=== PATIENT | female | born 1965 | race Hispanic/Latino ===

== ENCOUNTER 2016-05-19 18:13 | Emergency (ER) | payer SELFPAY ==
[2016-05-19] MEDS ORDERED: ASPIRIN (CHEWABLE) 81 MG TAB PO ONE (18:25)
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
[2016-05-19 18:45] VITALS: TEMP 97
--- NOTE | 2016-05-19 19:14 | RAD ---
EXAM DESCRIPTION: XR CHEST 1 VIEW CLINICAL HISTORY: chest COMPARISON: None FINDINGS: Cardiac silhouette is within normal limits. EKG leads project over the chest. There is no focal parenchymal or pleural disease. There is no acute osseous process visualized. IMPRESSION: No evidence of acute cardiopulmonary disease. Electronically signed by: Meño Blood 05/19/2016 19:12
[2016-05-19 23:21] VITALS: BP 111/63; O2SAT 98
== END 2016-05-19 23:29 | disposition home or self-care (01) ==
LOC: ER 18:13
DX: R07.9 Chest pain, unspecified (principal); F41.0 Panic disorder [episodic paroxysmal anxiety]; Z82.49 Family history of ischemic heart disease and other diseases of the circulatory system

== ENCOUNTER 2016-10-13 12:22 | Emergency (ER) | payer SELFPAY ==
[2016-10-13] MEDS ORDERED: ASPIRIN (CHEWABLE) 81 MG TAB PO ONE (12:28)
[2016-10-13] MEDS ORDERED: SODIUM CHLORIDE 0.9% 1000ML 1,000 ML IVS PRN (12:29)
[2016-10-13] MEDS ORDERED: KETOROLAC TROMETHAMINE INJ 30 MG/ML VIAL IV ONE (12:30)
[2016-10-13] MEDS ORDERED: ORPHENADRINE CITRATE 30 MG/ML AMP IV ONE (12:30)
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
[2016-10-13 13:09] VITALS: TEMP 98.9
--- NOTE | 2016-10-13 13:20 | RAD ---
EXAM DESCRIPTION: Chest,1 View CLINICAL HISTORY: 50 years,Female,pain COMPARISON: May 19, 1999 17 FINDINGS: Lung gonzales are clear, no consolidation, effusions, or nodules. Heart size and pulmonary vascularity are normal. Bony elements are unremarkable for age. IMPRESSION: Unremarkable chest. Stable Electronically signed by: Jj Newman MD 10/13/2016 1:20 PM CDT
--- NOTE | 2016-10-13 14:31 | CT ---
EXAM DESCRIPTION: Abdomen/Pelvis w/Contrast CLINICAL HISTORY: pain abdominal pain COMPARISON: August 21, 2009 TECHNIQUE: Postcontrast CT images of the abdomen and pelvis are obtained. This exam was performed according to our departmental dose-optimization program, which includes automated exposure control, adjustment of the mA and/or kV according to patient size and/or use of iterative reconstruction technique . FINDINGS: Visualized lung bases no acute findings. Nipple less than 1 cm hepatic cysts are stable. Spleen, pancreas, adrenal glands, and gallbladder are unremarkable. Abdominal vasculature is unremarkable. Simple fluid attenuation parapelvic cysts are seen in both kidneys left greater than right. No ureteral calcification or obstruction is appreciated. Urinary bladder is unremarkable. Uterus and adnexa are unremarkable. The appendix is unremarkable. No small bowel obstruction is seen. Stomach is poorly distended and not well evaluated. There is been interval resolution of the free intraperitoneal air seen on previous exam. No significant diverticular disease is appreciated. Osseous structures show no aggressive bony lesions. Mild curvature of the lumbar spine. IMPRESSION: No acute findings on CT of the abdomen and pelvis. Stable left greater than right renal parapelvic cysts. There is been interval resolution of the free intraperitoneal air seen on previous exam Electronically signed by: Forrest Whatley MD 10/13/2016 2:31 PM CDT
[2016-10-13 16:31] VITALS: BP 111/73; O2SAT 98
== END 2016-10-13 16:15 | disposition home or self-care (01) ==
LOC: ER 12:22
DX: R10.13 Epigastric pain (principal); R07.9 Chest pain, unspecified; Z82.49 Family history of ischemic heart disease and other diseases of the circulatory system
CPT/HCPCS: 36415; 71010; 74177; 80048; 80076; 80307; 81001; 82550; 82553; 83690; 84484; 85025; 85610; 85730; 93005; J1885; J2360; J7030

== ENCOUNTER 2017-03-01 13:08 | Emergency (ER) | payer OTHER ==
[2017-03-01 13:21] VITALS: TEMP 98.8
--- NOTE | 2017-03-01 13:35 | ED.PDOC ---
History of Present Illness - General Chief Complaint: Lower Extremity Injury Stated Complaint: Left ankle discomfort Time Seen by Provider: 03/01/17 13:24 Source: patient, RN notes reviewed, Vital Signs reviewed Exam Limitations: no limitations - History of Present Illness Initial Comments: Patient comes to the ER with c/o of L ankle pain. Reports she was walking around her car and turned towards her daughter and her ankle rolled. She is having pain at her lateral L ankle and up her morales to her knee. No numbness or tingling. Occurred: just prior to arrival Pain - Lower Extremity: moderate: Left Morales, Left Ankle Method of Injury: twisted Improving Factors: rest Worsening Factors: movement Allergies/Adverse Reactions: Allergies NO KNOWN ALLERGY Allergy (Verified 03/01/17 13:21) Home Medications: Ambulatory Orders NK [NK] 03/01/17 Review of Systems - Review of Systems Constitutional: States: no symptoms reported Respiratory: States: no symptoms reported Cardiology: States: no symptoms reported Musculoskeletal: States: see HPI, joint pain, joint swelling Skin: States: no symptoms reported Neurological: States: no symptoms reported. Denies: numbness, paresthesia, tingling All other Systems: No Change from Baseline Past Medical History (General) - Patient Medical History Hx Stroke: No Hx Congestive Heart Failure: No Hx Diabetes: No Surgical History: other - Vaccination History Hx Tetanus, Diphtheria Vaccination: No Hx Influenza Vaccination: No Hx Pneumococcal Vaccination: No - Social History Hx Tobacco Use: No Hx Alcohol Use: No Hx Substance Use: No Hx Substance Use Treatment: No Hx Depression: No Hx Physical Abuse: No Hx Emotional Abuse: No Hx Suspected Abuse: No - Female History Patient is a Female of Child Bearing Age (10 -59 yrs old): No - 2014, menopause Hx Last Menstrual Period: 10/06/14 - perimenopausal Patient : No Family Medical History - Family History Mother Family History: Unknown Living Status: Hx Family Hypertension: Yes - parents Hx Cardiac Disease: Yes - mom Hx Family Diabetes: Yes - parents Hx Family Cancer: Yes - breast-mom Physical Exam - Physical Exam General Appearance: Alert, Comfortable, No apparent distress, Well Developed, Well Groomed, Well Hydrated, Well Nourished Cardiovascular/Respiratory: normal peripheral pulses, no respiratory distress Leg: bone tenderness - along L fibula, pain, soft tissue tenderness Knee: bone tenderness - lateral aspect of knee over proximal fibula Ankle: bone tenderness - Lateral aspect of L ankle, limited ROM - due to pain, soft tissue tenderness, swelling Foot: normal inspection, non-tender, no evidence of injury, normal ROM Neuro/Tendon: normal sensation, normal motor functions, normal tendon functions , responds to pain, no evidence tendon injury Mental Status: alert, oriented x 3 Skin: normal color, warm/dry Comments: Vital Signs 03/01/17 13:16 Temperature 98.8 F Pulse Rate [ 72 Left Radial] Respiratory 18 Rate Blood Pressure 117/68 [Left Arm] O2 Sat by Pulse 97 Oximetry Progress - EKG/XRAY/CT XRAY: L knee: normal per Radiologist - Normal per Radiologist Procedures - Splinting Left Ankle Pre-Made Type: Ankle stir-up splint Splint: Ankle stir-up splint Pre-Proc Neuro Vasc Exam: normal Post-Proc Neuro Vasc Exam: normal Departure - Departure Clinical Impression: Inversion sprain of left ankle Qualifiers: Encounter type: initial encounter Qualified Code(s): S93.402A - Sprain of unspecified ligament of left ankle, initial encounter Time of Disposition: 14:08 Disposition: Discharge to Home or Self Care Condition: Good Departure Forms: ED Discharge - Pt. Copy, Patient Portal Self Enrollment Instructions: DI for Ankle Sprain Diet: resume usual diet Activity: increase activity as tolerated Home Medications: Ambulatory Orders NK [NK] 03/01/17
--- NOTE | 2017-03-01 14:00 | RAD ---
EXAM DESCRIPTION: Knee,Left Complete CLINICAL HISTORY: 51 years Female, Pain after twisting ankle COMPARISON: None. FINDINGS: There is no acute fracture or malalignment. No joint effusion is seen. There is no joint space narrowing, and the soft tissues are unremarkable. IMPRESSION: Negative exam. Electronically signed by: Brennen Obregon MD 03/01/2017 1:59 PM CDT
--- NOTE | 2017-03-01 14:00 | RAD ---
EXAM DESCRIPTION: Ankle,Left 3 Views CLINICAL HISTORY: 51 years Female, Pain after twisting ankle COMPARISON: None. FINDINGS: 3 views of left ankle show no acute fracture or malalignment. The tibiotalar joint space and talar dome are well-maintained. The base of the fifth metatarsal is intact. IMPRESSION: Negative exam. Electronically signed by: Brennen Obregon MD 03/01/2017 1:58 PM CDT
[2017-03-01] MEDS ORDERED: IBUPROFEN 200 MG TAB PO ONE (14:24)
[2017-03-01 15:02] VITALS: BP 124/72; O2SAT 98
== END 2017-03-01 14:25 | disposition home or self-care (01) ==
LOC: ER 13:08
DX: S93.402A Sprain of unspecified ligament of left ankle, initial encounter (principal); X50.1XXA Overexertion from prolonged static or awkward postures, initial encounter; Y92.9 Unspecified place or not applicable

== ENCOUNTER → 2017-09-25 | Outpatient (CLI) | payer SELFPAY ==
--- NOTE | 2017-09-25 16:52 | MAM ---
EXAM DESCRIPTION: Screening Mammogram,Bilateral: Digital Mammography CLINICAL HISTORY: 51 years Female SCREENING . Bilateral breast pain. No personal history of breast cancer. Mother with breast cancer. Childbirth. Postmenopausal. No HRT. COMPARISON: 2-D digital screening bilateral study 11/04/2014.. No prior reports available. TECHNIQUE: Bilateral CC and MLO projection full-field images, 2-D digital screening mammographic technique. CAD was utilized. FINDINGS: The breast parenchymal density pattern is: Heterogeneously dense breast tissue, which may obscure small masses. No skin thickening or nipple retraction right axillary lymph node. Small bilateral microcalcifications. No focal, stellate mass or density, focal asymmetry , and no suspicious microcalcifications bilaterally. Stable mammograms compared to the prior study. IMPRESSION: BI-RADS CATEGORY: 2 - BENIGN FINDINGS. FOLLOW UP: Routine digital bilateral screening, one year interval from September 2017. Written communication explaining the IMPRESSION and follow-up, will be mailed to the patient and referring health care provider. According to the [employer], yearly mammograms are recommended starting at age 40 and continuing as long as a woman is in good health. Any breast change noted on a breast self-exam should be reported promptly to the patient's healthcare provider. Breast MRI is recommended for women with an approximately 20-25% or greater lifetime risk of breast cancer, including women with a strong family history of breast or ovarian cancer and women who have been treated for Hodgkin's disease. A negative mammographic report should not delay tissue diagnosis in patients with significant clinical history or physical findings. Extremely dense breast tissue limits the sensitivity of digital mammography. Electronically signed by: Julio Moore MD 09/25/2017 4:51 PM CDT
== END ==
LOC: YCFC.O 15:16
PROVIDERS: ATTEND Nurse Practitioner Family
DX: Z12.31 Encounter for screening mammogram for malignant neoplasm of breast (principal); N64.4 Mastodynia

== ENCOUNTER 2019-08-25 12:05 | Emergency (ER) | payer SELFPAY ==
[2019-08-25] MEDS ORDERED: ASPIRIN TABLET 325 MG TAB PO ONE (12:07)
[2019-08-25] MEDS ORDERED: MECLIZINE HCL 12.5 MG TAB PO ONE (12:08)
--- NOTE | 2019-08-25 12:46 | RAD ---
EXAM DESCRIPTION: Chest,1 View CLINICAL HISTORY: intermittent chest pain COMPARISON: 13 October 2016 TECHNIQUE: AP portable chest FINDINGS: The lungs are clear. There is no infiltrate or effusion. The heart is normal size. IMPRESSION: Normal portable chest Electronically signed by: Jj Ortiz MD 08/25/2019 12:45 PM CDT
[2019-08-25] MEDS ORDERED: PROMETHAZINE HCL 25 MG TAB PO ONE (12:55)
--- NOTE | 2019-08-25 14:05 | ED.PDOC ---
History of Present Illness - General Chief Complaint: General Stated Complaint: dizziness, double vision, n/v Time Seen by Provider: 08/25/19 12:07 Source: patient Exam Limitations: no limitations - History of Present Illness Initial Comments: The patient is a 53-year-old female presented emergency room secondary to what appears to be 2 very brief episodes of vertigo over the last 12 to 18 hours with associated persistent dizziness and nausea related to that. When the nausea has been at its worst she has had a couple of episodes of substernal chest discomfort. The patient also has some costochondritis that is easily palpated to the right of the sternal border and does produce significant pain. No trauma. No syncope. No focal neurological changes otherwise. During the brief vertigo episodes she did have blurriness of her vision and moving of objects in her visual field. That has resolved. On exam she has no obvious abnormal nystagmus. Head impulse testing exacerbates dizziness symptoms primarily with turning to the left. No abnormal vertical skew deviation. Ear canals are clear. No focal neurological deficits otherwise. The patient is pleasant and cooperative. No difficulty swallowing or talking. Patient ambulates carefully but seems to be controlling her gait well. Timing/Duration: 24 hours Severity: moderate Improving Factors: nothing Worsening Factors: nothing Associated Symptoms: malaise, nausea/vomiting Allergies/Adverse Reactions: Allergies NO KNOWN ALLERGY Allergy (Verified 08/25/19 12:30) Home Medications: Ambulatory Orders Meclizine HCl 25 mg PO Q8HR PRN #10 tab 08/25/19 Ondansetron Odt [Zofran ODT] 4 mg PO Q8HR PRN #5 tab 08/25/19 predniSONE [Prednisone] 20 mg PO DAILY #5 tab 08/25/19 Review of Systems - Review of Systems Constitutional: States: no symptoms reported EENTM: States: no symptoms reported Respiratory: States: no symptoms reported Cardiology: States: no symptoms reported Gastrointestinal/Abdominal: States: nausea Genitourinary: States: no symptoms reported Musculoskeletal: States: no symptoms reported Skin: States: no symptoms reported Neurological: States: see HPI Endocrine: States: no symptoms reported All other Systems: No Change from Baseline Past Medical History (General) - Patient Medical History Hx Stroke: No Hx Congestive Heart Failure: No Hx Diabetes: No - Vaccination History Hx Tetanus, Diphtheria Vaccination: No Hx Influenza Vaccination: No Hx Pneumococcal Vaccination: No - Social History Hx Tobacco Use: No Hx Alcohol Use: No Hx Substance Use: No Hx Substance Use Treatment: No Hx Depression: No Hx Physical Abuse: No Hx Emotional Abuse: No Hx Suspected Abuse: No - Activities of Daily Living Hospice Agency (if applicable):: None - Female History Patient is a Female of Child Bearing Age (10 -59 yrs old): Yes Hx Last Menstrual Period: 10/06/14 - perimenopausal Patient : No - Triage Comment ED Triage Comment: pt voices dizziness, double vision with nausea vomiting and chest pressure. Family Medical History - Family History Mother Family History: Unknown Living Status: Hx Family Hypertension: Yes - parents Hx Cardiac Disease: Yes - mom Hx Family Diabetes: Yes - parents Hx Family Cancer: Yes - breast-mom Physical Exam - Physical Exam General Appearance: Alert, Anxious, No apparent distress Eye Exam: bilateral normal Ears, Nose, Throat: hearing grossly normal, normal pharynx Neck: non-tender, full range of motion, supple Respiratory: lungs clear, normal breath sounds, no respiratory distress, no accessory muscle use Cardiovascular/Chest: normal peripheral pulses, regular rate, rhythm, no edema, other - Tenderness to palpation over the sternocostal junction on the right Peripheral Pulses: radial,right: 2+, radial,left: 2+ Gastrointestinal/Abdominal: non tender, soft Rectal Exam: deferred Back Exam: no CVA tenderness, no vertebral tenderness Extremity: non-tender, normal inspection, no pedal edema, normal capillary refill Neurologic: [employer] II-XII nml as tested, no motor/sensory deficits, alert, oriented x 3, other - The patient is quite anxious. She does have an exacerbation of dizziness but no obvious abnormal nystagmus and no true vertigo with turning towards the left. Skin Exam: normal color Comments: Vital Signs - 24 hr 08/25/19 08/25/19 08/25/19 12:07 12:14 12:58 Temperature 97.1 F L 97.1 F L Pulse Rate [ 60 60 56 L brachial] Respiratory 18 18 Rate Blood Pressure 169/78 140/77 [Left Arm] O2 Sat by Pulse 99 98 Oximetry 08/25/19 08/25/19 13:00 13:02 Temperature 97.1 F L 97.1 F L Pulse Rate [ 62 67 brachial] Respiratory 20 18 Rate Blood Pressure 156/78 156/78 [Left Arm] O2 Sat by Pulse 92 L 99 Oximetry Progress - Progress Progress: 08/25/19 14:08 The patient is a 53-year-old female presented emergency room with what appears to be a few brief episodes of mild vertigo with residual dizziness and nausea related to that. The patient does have mild inflammation to palpation at the sternal costal junction on the right. Tylenol and Motrin can help with this. Source of the vertigo is most likely vestibular neuronitis or labyrinthitis based on the exam, localizing more towards the left . The patient will be placed on low-dose prednisone for 5 days. She will also be written for Zofran for as needed use to control any nausea and meclizine as well for the next few days to help reduce dizziness symptoms. She is to keep her self well- hydrated. I would recommend the patient take an aspirin daily for the next month for anti-inflammatory purposes. ER warnings are given for any significant worsening. I do want her to follow back up with her primary care doctor for repeat evaluation before the weekend. [id number] - Results/Orders Results/Orders: Chest x-ray appears within normal limits. EKG shows mild sinus bradycardia 58 bpm. Normal axis. Borderline R wave progression. No ST segment or T wave changes indicative of acute ischemia. Normal QT interval. Laboratory Tests 08/25/19 08/25/19 08/25/19 12:57 12:57 12:57 WBC 4.7 L RBC 4.98 Hgb 15.1 Hct 44.2 MCV 88.7 MCH 30.3 MCHC 34.2 RDW 13.5 Plt Count 235 MPV 8.4 Absolute Neuts (auto) 2.90 Absolute Lymphs (auto) 1.50 Absolute Monos (auto) 0.20 Absolute Eos (auto) 0.10 Absolute Basos (auto) 0.00 Neutrophils % 61.6 Lymphocytes % 31.9 Monocytes % 3.8 Eosinophils % 2.0 Basophils % 0.7 PT 10.0 INR 1.01 PTT (SP) 24.7 D-Dimer, Quantitative < 131 L Sodium 138 Potassium 3.5 L Chloride 106 Carbon Dioxide 24 Anion Gap 11.5 L BUN 10 Creatinine 0.49 L BUN/Creatinine Ratio 20.4 H Random Glucose 94 Serum Osmolality 274.5 L Calcium 9.0 Magnesium 2.1 Total Bilirubin 0.7 AST 23 ALT 25 Alkaline Phosphatase 74 Creatine Kinase 50 CK-MB (CK-2) 1.7 CK-MB (CK-2) % Not Reportable Troponin I < 0.02 B-Natriuretic Peptide 17.2 Serum Total Protein 6.8 Albumin 4.2 Globulin 2.6 Albumin/Globulin Ratio 1.6 TSH 0.95 Serum HCG, Qual Urine Color Urine Appearance Urine pH Ur Specific Boring Urine Protein Urine Glucose (UA) Urine Ketones Urine Blood Urine Nitrite Urine Bilirubin Urine Urobilinogen Ur Leukocyte Esterase Urine RBC Urine WBC Ur Epithelial Cells Amorphous Sediment Urine Bacteria 08/25/19 08/25/19 12:57 13:15 WBC RBC Hgb Hct MCV MCH MCHC RDW Plt Count MPV Absolute Neuts (auto) Absolute Lymphs (auto) Absolute Monos (auto) Absolute Eos (auto) Absolute Basos (auto) Neutrophils % Lymphocytes % Monocytes % Eosinophils % Basophils % PT INR PTT (SP) D-Dimer, Quantitative Sodium Potassium Chloride Carbon Dioxide Anion Gap BUN Creatinine BUN/Creatinine Ratio Random Glucose Serum Osmolality Calcium Magnesium Total Bilirubin AST ALT Alkaline Phosphatase Creatine Kinase CK-MB (CK-2) CK-MB (CK-2) % Troponin I B-Natriuretic Peptide Serum Total Protein Albumin Globulin Albumin/Globulin Ratio TSH Serum HCG, Qual Negative Urine Color Yellow Urine Appearance Clear Urine pH 7.0 Ur Specific Boring 1.025 Urine Protein Negative Urine Glucose (UA) Negative Urine Ketones Negative Urine Blood Negative Urine Nitrite Negative Urine Bilirubin Negative Urine Urobilinogen 0.2 Ur Leukocyte Esterase Negative Urine RBC 0-1 Urine WBC 0-1 Ur Epithelial Cells 3-5 Amorphous Sediment 1+ Urine Bacteria 0 Departure - Departure Clinical Impression: Vertigo, Costochondritis, acute Disposition: Discharge to Home or Self Care Condition: Fair Departure Forms: ED Discharge - Pt. Copy, Patient Portal Self Enrollment Diet: bland diet Activity: increase activity as tolerated - Avoid high risk activities such as climbing or swimming until dizziness has significantly improved Referrals: Toyin Kyle FNP [Primary Care Provider] - 1-2 Weeks Prescriptions: Meclizine HCl 25 mg PO Q8HR PRN #10 tab PRN Reason: Dizziness Ondansetron Odt [Zofran ODT] 4 mg PO Q8HR PRN #5 tab PRN Reason: Nausea--Moderate predniSONE [Prednisone] 20 mg PO DAILY #5 tab Home Medications: Ambulatory Orders Meclizine HCl 25 mg PO Q8HR PRN #10 tab 08/25/19 Ondansetron Odt [Zofran ODT] 4 mg PO Q8HR PRN #5 tab 08/25/19 predniSONE [Prednisone] 20 mg PO DAILY #5 tab 08/25/19 Additional Instructions: The patient is a 53-year-old female presented emergency room with what appears to be a few brief episodes of mild vertigo with residual dizziness and nausea related to that. The patient does have mild inflammation to palpation at the sternal costal junction on the right. Tylenol and Motrin can help with this. Source of the vertigo is most likely vestibular neuronitis or lab yrinthitis based on the exam, localizing more towards the left . The patient will be placed on low-dose prednisone for 5 days. She will also be written for Zofran for as needed use to control any nausea and meclizine as well for the next few days to help reduce dizziness symptoms. She is to keep her self well- hydrated. I would recommend the patient take an aspirin daily for the next month for anti-inflammatory purposes. ER warnings are given for any significant worsening. I do want her to follow back up with her primary care doctor for repeat evaluation before the weekend.
[2019-08-25 14:09] VITALS: BP 159/83; TEMP 98.4; O2SAT 93
== END 2019-08-25 14:15 | disposition home or self-care (01) ==
LOC: ER 12:05
DX: R42 Dizziness and giddiness (principal); M94.0 Chondrocostal junction syndrome [Tietze]; R11.2 Nausea with vomiting, unspecified; H53.2 Diplopia